=== PATIENT | male | born 1935 | race Caucasian/White ===

== ENCOUNTER 2016-11-27 07:02 | Observation (INO) | payer MEDICARE ==
[~2016-11-27] VITALS: Ht 185.4 cm; Wt 84.6 kg
[~2016-11-27 07:02] MED LIST: CEPH-376 PO; COLC0.6T37 PO; DIGO250T PO; DILT-4 PO; DILT120T3 PO; DILT240C55 PO; LEVE500T53 PO; LEVO750T26 PO; LISI-167 PO; METO-93 PO; RIVA20TA PO; UNKNOWN BP MED
[2016-11-27] MEDS ORDERED: SODIUM CHLORIDE 0.9% 1,000 ML IV ONE (07:31)
[2016-11-27] MEDS ORDERED: DILTIAZEM 125 MG in DEXTROSE 5% 100 ML IV SCH (07:31)
[2016-11-27 07:53] LABS: HEMOGLOBIN 16.7 g/dL (13.7-18.0)
[2016-11-27] MEDS ORDERED: DILTIAZEM 5 MG/ML, 5ML ONE (07:58)
[2016-11-27] MEDS ORDERED: ASPIRIN 81 MG TABLET CHEW ONE (07:58)
[2016-11-27] MEDS ORDERED: SODIUM CHLORIDE FLUSH 10ML SYR IVF ONE (08:00)
[2016-11-27] MEDS ORDERED: DILTIAZEM 5 MG/ML, 5ML IV ONE (08:00)
[2016-11-27] MEDS ORDERED: ASPIRIN 81 MG TABLET CHEW PO ONE (08:00)
[2016-11-27 08:06] LABS: BLOOD UREA NITROGEN 17 mg/dL (7-18)
[2016-11-27 08:18] LABS: IS PT STATUS REG ER OR PRE ER? YES
[2016-11-27] MEDS ORDERED: SODIUM CHLORIDE FLUSH 10ML SYR IVF PRN (09:30)
[2016-11-27] MEDS: SODIUM CHLORIDE 0.9% 1,000 ML IV SCH (09:35)
[2016-11-27] MEDS ORDERED: ENOXAPARIN 40 MG/0.4 ML SQ SCH (10:00)
[2016-11-27] MEDS ORDERED: DOCUSATE 100 MG CAPSULE PO PRN (10:00)
[2016-11-27] MEDS ORDERED: TRAZODONE 50MG TABLET PO PRN (10:00)
[2016-11-27] MEDS ORDERED: ACETAMINOPHEN 325 MG TABLET PO PRN (10:00)
[2016-11-27] MEDS ORDERED: ENOXAPARIN 40 MG/0.4 ML ONE (10:56)
[2016-11-27 13:00] VITALS: BP 128/86
[2016-11-27 18:33] VITALS: BP 152/82
[2016-11-27] MEDS: DILTIAZEM 90 MG TABLET PO SCH (21:15)
[2016-11-28 02:11] VITALS: BP 125/79
[2016-11-28] MEDS: SODIUM CHLORIDE 0.9% 1,000 ML IV SCH (03:00)
[2016-11-28 04:56] LABS: HEMOGLOBIN 14.3 g/dL (13.7-18.0)
[2016-11-28 05:14] LABS: BLOOD UREA NITROGEN 15 mg/dL (7-18)
[2016-11-28] MEDS ORDERED: ASPIRIN 325 MG TABLET EC PO SCH (06:00)
[2016-11-28 06:45] VITALS: BP 142/96
[2016-11-28] MEDS: DILTIAZEM 90 MG TABLET PO SCH (07:39)
[2016-11-28] MEDS ORDERED: DILT90TA PO (07:45)
[2016-11-28] MEDS ORDERED: APIX2.5T PO (07:45)
[2016-11-28] MEDS ORDERED: DIGOXIN 0.25 MG TABLET PO SCH (09:00)
== END 2016-11-28 10:43 | disposition home or self-care (01) ==
LOC: ED 08:45 → INTOOBSV 09:11 → OBSVTOIN 09:11 → EDIP 09:11 → 5SO 14:04
PROVIDERS: ADMIT Internal Medicine; ATTEND Internal Medicine
DX: I48.91 Unspecified atrial fibrillation (principal); R00.0 Tachycardia, unspecified; R53.1 Weakness; R79.89 Other specified abnormal findings of blood chemistry; F03.90 Unspecified dementia, unspecified severity, without behavioral disturbance, psychotic disturbance, mood disturbance, and anxiety; I10 Essential (primary) hypertension; I50.9 Heart failure, unspecified; Z91.14 Patient's other noncompliance with medication regimen
CPT/HCPCS: 36415; 70450; 71010; 80048; 80162; 82040; 83735; 83880; 84484; 85025; 85610; 85730; 93005; 96365; 96366; 96372; 96375; 99285; G0378; J1650; J7030

== ENCOUNTER → 2017-02-01 | Outpatient (CLI) | payer MEDICARE ==
[~2017-02-01] MED LIST changes: +APIX2.5T PO; +DILT90TA PO
[2017-02-01 13:08] LABS: BLOOD UREA NITROGEN 22 mg/dL (7-18)
== END | disposition home or self-care (01) ==
LOC: CFH 09:05
PROVIDERS: ATTEND Internal Medicine Cardiovascular Disease
DX: I10 Essential (primary) hypertension (principal)
CPT/HCPCS: 36415; 80048

== ENCOUNTER → 2017-03-21 | Outpatient (CLI) | payer MEDICARE ==
[2017-03-22 13:14] LABS: RHEUMATOID FACTOR SCREEN NEGATIVE (NEGATIVE)
[2017-03-22 15:25] LABS: ANA SCREEN POSITIVE (Negative)
== END | disposition home or self-care (01) ==
LOC: CFH 12:45
PROVIDERS: ATTEND Family Medicine
DX: R22.32 Localized swelling, mass and lump, left upper limb (principal); M19.012 Primary osteoarthritis, left shoulder
CPT/HCPCS: 36415; 84550; 86038; 86039; 86140; 86200; 86430

== ENCOUNTER 2019-04-19 14:53 | Inpatient (IN) | payer MEDICARE ==
[~2019-04-19] VITALS: Ht 185.4 cm; Wt 85.0 kg
[2019-04-21 07:54] VITALS: BP 139/98
== END 2019-04-21 10:20 | disposition home or self-care (01) | DRG 682 ==
LOC: ED 18:54 → EDIP 18:57 → 4WST 20:00 → DCLOUNGE 04-21 10:00
PROVIDERS: ADMIT Internal Medicine; ATTEND Internal Medicine
DX: N17.0 Acute kidney failure with tubular necrosis (principal); R53.2 Functional quadriplegia; I50.42 Chronic combined systolic (congestive) and diastolic (congestive) heart failure; J98.11 Atelectasis; I48.2 Chronic atrial fibrillation; E86.0 Dehydration; I11.0 Hypertensive heart disease with heart failure; I34.0 Nonrheumatic mitral (valve) insufficiency; R56.9 Unspecified convulsions; Z91.14 Patient's other noncompliance with medication regimen
CPT/HCPCS: 36415; 70553; 71045; 71260; 80053; 80061; 81001; 82378; 83036; 83690; 83735; 84100; 84439; 84443; 84484; 85025; 87086; 93005; 96360; 99285; G0378; Q9967; J7040

== ENCOUNTER 2019-10-05 08:39 | Inpatient (IN) | payer MEDICARE ==
[~2019-10-05] VITALS: Ht 185.4 cm; Wt 87.6 kg
[~2019-10-05 08:39] MED LIST changes: -DILT-4 PO; +DILT120C83 PO; +DILT180C72 PO; +LAMO25TA9 PO; +LAMO25TB7 PO; +METO25TA35 PO
[2019-10-05] MEDS ORDERED: SODIUM CHLORIDE FLUSH 10ML SYR IVF ONE (09:00)
[2019-10-05] MEDS ORDERED: DILTIAZEM 5 MG/ML, 5ML IV ONE (09:00)
[2019-10-05] MEDS: DILTIAZEM 125 MG in SODIUM CHLORIDE 0.9% 100 ML IV SCH ×2 (09:15→14:13)
[2019-10-05] MEDS ORDERED: DILTIAZEM 5 MG/ML, 5ML ONE (09:18)
[2019-10-05] MEDS ORDERED: DILT180C53 PO (09:25)
[2019-10-05] MEDS ORDERED: ASPI-650 PO (09:25)
--- NOTE | 2019-10-05 09:32 | NUR ---
PT SEND FROM DR JIMENEZ. PT HAS CO OF SOB FOR FEW DAYS. NO CP. NO N/V. PT ON CARDIAC MONIOTR, FOUND TO BE IN AFIB RATE RANGING 100-120. PT IS NOT IN RESP DISTRESS. RA STABLE. BP STABLE. PT ON ELECTRIC METER INSPECTOR, IV ESTABLISHED. MEDICATED PER ORDERS 10 MG DILT IVP AND DILT GTT STARTED AT 10 ML/HR
[2019-10-05 09:40] LABS: BASOPHILS # (AUTO) 0.02 x10^3/uL (0-0.1); BASOPHILS % (AUTO) 0 % (0-1); EOSINOPHILS # (AUTO) 0.12 x10^3/uL (0-0.4); EOSINOPHILS % (AUTO) 1 % (1-7); LYMPHOCYTES # (AUTO) 1.03 x10^3/uL (1-3.4); LYMPHOCYTES % (AUTO) 10 % (22-44); MD NO; MEAN CORPUSCULAR HEMOGLOBIN 31.4 pg (27.5-34.5); MEAN CORPUSCULAR HGB CONC 33.2 g/dL (33.2-36.2); MEAN CORPUSCULAR VOLUME 94.5 fL (81-97); MEAN PLATELET VOLUME 9.6 fL (7.4-10.4); MONOCYTES # (AUTO) 0.65 x10^3/uL (0.2-0.8); MONOCYTES % (AUTO) 6 % (2-9); NEUTROPHILS # (AUTO) 8.39 x10^3/uL (1.8-6.8); NEUTROPHILS % (AUTO) 82 % (42-75); PLATELET COUNT 184 x10^3/uL (130-400); RED BLOOD COUNT 4.68 x10^6/uL (4.38-5.82)
[2019-10-05 09:48] LABS: INTERNATIONAL NORMALIZED RATIO 1.07 (0.93-1.1); PROTHROMBIN TIME 11.3 Seconds (9.6-11.5)
[2019-10-05 10:14] LABS: CHLORIDE 111 mmol/L (98-107)
--- NOTE | 2019-10-05 10:21 | NUR ---
PT WATCHING TV, CALL LIGHT IN REACH. DISCUSSED POC FOR POSSIBLE ADMIT. VS STABLE.
[2019-10-05 10:22] LABS: ALANINE AMINOTRANSFERASE 31 U/L (12-78); ALBUMIN 3.1 g/dL (3.4-5.0); ALKALINE PHOSPHATASE 67 U/L (45-117); ANION GAP 8 mmol/L (5-15); CALCIUM 8.5 mg/dL (8.5-10.1); CREATININE 1.42 mg/dL (0.7-1.3); T4 (THYROXINE) 6.8 mcg/dL (4.5-12.1); TOTAL PROTEIN 6.9 g/dL (6.4-8.2); TROPONIN I < 0.015 ng/mL (0.000-0.045)
[2019-10-05] MEDS ORDERED: NEOSPORIN OINT. PKT 1 PACKET ONE (10:43)
[2019-10-05] MEDS ORDERED: ONDANSETRON ODT 4 MG PO PRN (11:00)
[2019-10-05] MEDS ORDERED: SODIUM CHLORIDE FLUSH 10ML SYR IVF PRN (11:00)
[2019-10-05] MEDS ORDERED: ACETAMINOPHEN 325 MG TABLET PO PRN (11:00)
--- NOTE | 2019-10-05 11:49 | NUR ---
REPORT TO [facility]. ROOM DIRTY
[2019-10-05 12:28] VITALS: BP 142/91
[2019-10-05] MEDS: SODIUM CHLORIDE 0.9% 1,000 ML IV SCH (14:13)
[2019-10-05 15:17] LABS: CULTURE INDICATED? YES; MICROSCOPIC INDICATED
[2019-10-05] MEDS: CEFTRIAXONE PMX 2GM/50ML 50 ML IV SCH (17:29)
[2019-10-05] MEDS: ENOXAPARIN 40 MG/0.4 ML SQ SCH (18:30)
[2019-10-05 18:55] VITALS: BP 145/87
[2019-10-05] MEDS: METOPROLOL TARTRATE 25 MG TABLET PO SCH (20:20)
[2019-10-05] MEDS ORDERED: DILTIAZEM CD 180 MG CAP.ER.24H PO SCH (21:00)
[2019-10-06 01:04] VITALS: BP 144/84
[2019-10-06] MEDS: SODIUM CHLORIDE 0.9% 1,000 ML IV SCH ×2 (05:09→21:21)
[2019-10-06 05:33] LABS: BASOPHILS # (AUTO) 0.03 x10^3/uL (0-0.1); BASOPHILS % (AUTO) 0 % (0-1); EOSINOPHILS # (AUTO) 0.21 x10^3/uL (0-0.4); EOSINOPHILS % (AUTO) 2 % (1-7); LYMPHOCYTES # (AUTO) 0.85 x10^3/uL (1-3.4); LYMPHOCYTES % (AUTO) 9 % (22-44); MD NO; MEAN CORPUSCULAR HEMOGLOBIN 31.4 pg (27.5-34.5); MEAN CORPUSCULAR HGB CONC 33.1 g/dL (33.2-36.2); MEAN CORPUSCULAR VOLUME 94.7 fL (81-97); MEAN PLATELET VOLUME 10.1 fL (7.4-10.4); MONOCYTES # (AUTO) 0.74 x10^3/uL (0.2-0.8); MONOCYTES % (AUTO) 8 % (2-9); NEUTROPHILS # (AUTO) 7.45 x10^3/uL (1.8-6.8); NEUTROPHILS % (AUTO) 80 % (42-75); PLATELET COUNT 180 x10^3/uL (130-400); RED BLOOD COUNT 4.37 x10^6/uL (4.38-5.82); RED CELL DISTRIBUTION WIDTH 15.1 % (9.4-14.8)
[2019-10-06 05:36] LABS: ANION GAP 7 mmol/L (5-15); CALCIUM 7.9 mg/dL (8.5-10.1); CHLORIDE 110 mmol/L (98-107)
[2019-10-06] MEDS ORDERED: DILTIAZEM 125 MG in SODIUM CHLORIDE 0.9% 100 ML IV PRN (09:00)
[2019-10-06] MEDS ORDERED: DILTIAZEM 5 MG/ML, 5ML IVPush ONE (09:00)
[2019-10-06 10:00] VITALS: BP 134/84
[2019-10-06] MEDS: METOPROLOL TARTRATE 25 MG TABLET PO SCH ×2 (10:09→20:02)
[2019-10-06] MEDS: ASPIRIN 325 MG TABLET EC PO SCH (10:09)
[2019-10-06 13:00] VITALS: BP 144/103
[2019-10-06] MEDS: CEFTRIAXONE PMX 2GM/50ML 50 ML IV SCH (16:59)
[2019-10-06] MEDS: ENOXAPARIN 40 MG/0.4 ML SQ SCH (17:47)
[2019-10-06 19:56] VITALS: BP 144/100
[2019-10-07 02:18] VITALS: BP 158/119
[2019-10-07] MEDS: DILTIAZEM 125 MG in SODIUM CHLORIDE 0.9% 100 ML IV SCH ×3 (02:44→20:16)
[2019-10-07 05:35] LABS: ALANINE AMINOTRANSFERASE 18 U/L (12-78); ALBUMIN 2.8 g/dL (3.4-5.0); ANION GAP 9 mmol/L (5-15); CHLORIDE 111 mmol/L (98-107); CREATININE 1.01 mg/dL (0.7-1.3)
[2019-10-07 05:36] LABS: BASOPHILS # (AUTO) 0.05 x10^3/uL (0-0.1); BASOPHILS % (AUTO) 1 % (0-1); EOSINOPHILS # (AUTO) 0.32 x10^3/uL (0-0.4); EOSINOPHILS % (AUTO) 4 % (1-7); LYMPHOCYTES # (AUTO) 1.04 x10^3/uL (1-3.4); LYMPHOCYTES % (AUTO) 13 % (22-44); MD NO; MEAN CORPUSCULAR HEMOGLOBIN 31.6 pg (27.5-34.5); MEAN CORPUSCULAR HGB CONC 33.2 g/dL (33.2-36.2); MEAN PLATELET VOLUME 9.9 fL (7.4-10.4); MONOCYTES # (AUTO) 0.69 x10^3/uL (0.2-0.8); MONOCYTES % (AUTO) 9 % (2-9); NEUTROPHILS # (AUTO) 6.01 x10^3/uL (1.8-6.8); NEUTROPHILS % (AUTO) 74 % (42-75); PLATELET COUNT 190 x10^3/uL (130-400); RED BLOOD COUNT 4.41 x10^6/uL (4.38-5.82); RED CELL DISTRIBUTION WIDTH 14.8 % (9.4-14.8)
[2019-10-07 05:37] LABS: ALKALINE PHOSPHATASE 66 U/L (45-117); BILIRUBIN,TOTAL 0.8 mg/dL (0.2-1.0); TOTAL PROTEIN 6.4 g/dL (6.4-8.2)
[2019-10-07 06:52] VITALS: BP 153/80
[2019-10-07] MEDS: ASPIRIN 325 MG TABLET EC PO SCH (08:54)
[2019-10-07] MEDS: METOPROLOL TARTRATE 25 MG TABLET PO SCH ×4 (08:54→20:14)
[2019-10-07] MEDS ORDERED: DILTIAZEM 125 MG in SODIUM CHLORIDE 0.9% 100 ML IV SCH (09:00)
[2019-10-07] MEDS ORDERED: POTASSIUM CHLORIDE 20 MEQ TAB.ER.PRT PO ONE (09:30)
[2019-10-07] MEDS: SODIUM CHLORIDE 0.9% 1,000 ML IV SCH (11:01)
[2019-10-07 12:51] VITALS: BP 143/73
[2019-10-07 15:21] LABS: OCCULT BLOOD NEGATIVE (NEGATIVE)
[2019-10-07] MEDS: ENOXAPARIN 40 MG/0.4 ML SQ SCH (16:57)
[2019-10-07] MEDS ORDERED: HALOPERIDOL 5 MG TABLET PO PRN (19:30)
[2019-10-07 19:47] VITALS: BP 138/87
[2019-10-07] MEDS: SULFAMETH./TRIMETHOPRIM DS 800MG/160MG TABLET PO SCH (20:14)
[2019-10-07] MEDS ORDERED: QUETIAPINE 25MG TABLET PO PRN (22:30)
[2019-10-07] MEDS ORDERED: PHARMACY INSTRUCTION MC PRN (22:30)
[2019-10-07] MEDS ORDERED: INSTRUCTION SEE COMMENTS XX PRN (22:30)
[2019-10-07] MEDS: MELATONIN 3 MG TABLET PO SCH (22:50)
[2019-10-08 06:48] VITALS: BP 147/90
[2019-10-08] MEDS: SULFAMETH./TRIMETHOPRIM DS 800MG/160MG TABLET PO SCH ×2 (08:19→20:13)
[2019-10-08] MEDS: METOPROLOL TARTRATE 25 MG TABLET PO SCH ×4 (08:19→20:13)
[2019-10-08] MEDS: ASPIRIN 325 MG TABLET EC PO SCH (08:19)
[2019-10-08 08:51] LABS: ANION GAP 8 mmol/L (5-15); CALCIUM 8.3 mg/dL (8.5-10.1); CHLORIDE 111 mmol/L (98-107)
[2019-10-08 08:52] LABS: CREATININE 0.97 mg/dL (0.7-1.3)
[2019-10-08 12:16] VITALS: BP 129/89
[2019-10-08] MEDS: DILTIAZEM 90 MG TABLET PO SCH ×3 (15:44→20:32)
[2019-10-08 20:01] VITALS: BP 134/76
[2019-10-08 20:09] VITALS: BP 144/81
[2019-10-08] MEDS: MELATONIN 3 MG TABLET PO SCH (20:14)
[2019-10-08] MEDS ORDERED: ENOXAPARIN 40 MG/0.4 ML SQ SCH (21:00)
[2019-10-09] MEDS ORDERED: DILTIAZEM 125 MG in SODIUM CHLORIDE 0.9% 100 ML IV SCH (02:44)
[2019-10-09 05:14] VITALS: BP 119/54
[2019-10-09] MEDS: DILTIAZEM 90 MG TABLET PO SCH ×4 (05:17→21:09)
[2019-10-09] MEDS: METOPROLOL TARTRATE 25 MG TABLET PO SCH ×4 (05:17→21:08)
[2019-10-09 07:03] VITALS: BP 125/83
[2019-10-09] MEDS: SULFAMETH./TRIMETHOPRIM DS 800MG/160MG TABLET PO SCH ×2 (07:46→21:08)
[2019-10-09] MEDS ORDERED: ENOXAPARIN 80 MG/0.8 ML SQ SCH (08:00)
[2019-10-09 09:20] LABS: BASOPHILS # (AUTO) 0.02 x10^3/uL (0-0.1); BASOPHILS % (AUTO) 0 % (0-1); EOSINOPHILS # (AUTO) 0.42 x10^3/uL (0-0.4); EOSINOPHILS % (AUTO) 6 % (1-7); LYMPHOCYTES # (AUTO) 0.88 x10^3/uL (1-3.4); LYMPHOCYTES % (AUTO) 12 % (22-44); MD NO; MEAN CORPUSCULAR HEMOGLOBIN 31.3 pg (27.5-34.5); MEAN CORPUSCULAR HGB CONC 33.1 g/dL (33.2-36.2); MEAN CORPUSCULAR VOLUME 94.6 fL (81-97); MEAN PLATELET VOLUME 9.4 fL (7.4-10.4); MONOCYTES # (AUTO) 0.39 x10^3/uL (0.2-0.8); MONOCYTES % (AUTO) 5 % (2-9); NEUTROPHILS # (AUTO) 5.56 x10^3/uL (1.8-6.8); NEUTROPHILS % (AUTO) 76 % (42-75); PLATELET COUNT 231 x10^3/uL (130-400); RED CELL DISTRIBUTION WIDTH 14.6 % (9.4-14.8)
[2019-10-09 09:33] LABS: CALCIUM 8.3 mg/dL (8.5-10.1); CHLORIDE 109 mmol/L (98-107)
[2019-10-09 09:37] LABS: ANION GAP 8 mmol/L (5-15); CREATININE 1.42 mg/dL (0.7-1.3)
[2019-10-09] MEDS: ASPIRIN 81 MG TABLET EC PO SCH (10:56)
[2019-10-09 12:56] VITALS: BP 129/91
[2019-10-09] MEDS ORDERED: LAMO25TB7 PO (17:06)
[2019-10-09 17:31] LABS: ANION GAP 5 mmol/L (5-15); CALCIUM 8.8 mg/dL (8.5-10.1); CHLORIDE 108 mmol/L (98-107); CREATININE 1.43 mg/dL (0.7-1.3)
[2019-10-09 17:41] LABS: BASOPHILS # (AUTO) 0.04 x10^3/uL (0-0.1); BASOPHILS % (AUTO) 1 % (0-1); EOSINOPHILS # (AUTO) 0.33 x10^3/uL (0-0.4); EOSINOPHILS % (AUTO) 5 % (1-7); LYMPHOCYTES % (AUTO) 17 % (22-44); MD NO; MEAN CORPUSCULAR HEMOGLOBIN 31.3 pg (27.5-34.5); MEAN CORPUSCULAR HGB CONC 33.1 g/dL (33.2-36.2); MEAN CORPUSCULAR VOLUME 94.3 fL (81-97); MEAN PLATELET VOLUME 9.7 fL (7.4-10.4); MONOCYTES # (AUTO) 0.65 x10^3/uL (0.2-0.8); MONOCYTES % (AUTO) 10 % (2-9); NEUTROPHILS # (AUTO) 4.49 x10^3/uL (1.8-6.8); NEUTROPHILS % (AUTO) 68 % (42-75); PLATELET COUNT 231 x10^3/uL (130-400); RED BLOOD COUNT 4.69 x10^6/uL (4.38-5.82); RED CELL DISTRIBUTION WIDTH 15.2 % (9.4-14.8)
[2019-10-09 18:47] VITALS: BP 109/76
[2019-10-09 21:07] VITALS: BP 138/85
[2019-10-09] MEDS: APIXABAN 5 MG TABLET PO SCH (21:08)
[2019-10-09] MEDS: MELATONIN 3 MG TABLET PO SCH (21:09)
[2019-10-10 00:46] VITALS: BP 143/88
[2019-10-10 05:16] VITALS: BP 129/86
[2019-10-10] MEDS: ASPIRIN 81 MG TABLET EC PO SCH (05:17)
[2019-10-10] MEDS: METOPROLOL TARTRATE 25 MG TABLET PO SCH (05:17)
[2019-10-10] MEDS: DILTIAZEM 90 MG TABLET PO SCH (05:17)
[2019-10-10 07:48] VITALS: BP 120/80
[2019-10-10] MEDS: APIXABAN 5 MG TABLET PO SCH ×2 (08:34→08:35)
[2019-10-10] MEDS: SULFAMETH./TRIMETHOPRIM DS 800MG/160MG TABLET PO SCH (08:34)
[2019-10-10] MEDS ORDERED: DILT180C72 PO (09:39)
[2019-10-10] MEDS ORDERED: APIX5TAB PO (09:39)
[2019-10-10] MEDS ORDERED: METO-290 PO (09:39)
[2019-10-10] MEDS ORDERED: ASPI81TA45 PO (09:39)
[2019-10-10] MEDS ORDERED: Sulfameth./Trimethoprim Ds PO (09:39)
== END 2019-10-10 10:40 | disposition home or self-care (01) | DRG 682 ==
LOC: ED 10:52 → EDIP 10:56 → 5SO 12:22 → DCLOUNGE 10-10 10:21
PROVIDERS: ADMIT Emergency Medicine; ATTEND Hospitalist
DX: N17.9 Acute kidney failure, unspecified (principal); G93.41 Metabolic encephalopathy; N39.0 Urinary tract infection, site not specified; I48.20 Chronic atrial fibrillation, unspecified; I50.40 Unspecified combined systolic (congestive) and diastolic (congestive) heart failure; B95.8 Unspecified staphylococcus as the cause of diseases classified elsewhere; Z88.8 Allergy status to other drugs, medicaments and biological substances; E86.0 Dehydration; I11.0 Hypertensive heart disease with heart failure; Z79.82 Long term (current) use of aspirin; Z91.14 Patient's other noncompliance with medication regimen
CPT/HCPCS: 36415; 71045; 80048; 80053; 81001; 82272; 83735; 83880; 84100; 84436; 84443; 84484; 85025; 85610; 85730; 87077; 87086; 87186; 93005; 93306; 96374; G0378; J0696; J1650; J7030

== ENCOUNTER 2019-12-09 11:39 | Observation (INO) | payer MEDICARE ==
[~2019-12-09] VITALS: Ht 185.4 cm; Wt 83.8 kg
[~2019-12-09 11:39] MED LIST changes: +APIX5TAB PO; +ASPI-650 PO; +ASPI81TA45 PO; -DIGO250T PO; +DIGO250T3 PO; +DILT180C53 PO; +METO-290 PO; +Sulfameth./Trimethoprim Ds PO
[2019-12-09] MEDS ORDERED: MORPHINE SULFATE 4 MG/ML, 1ML ONE ×2 (12:11→13:24)
--- NOTE | 2019-12-09 12:11 | NUR ---
THIS IS A 84 YEAR OLD MALE WHO C/O MID ABD TOWARD BACK PAIN. 06/21. DAUGHTER AT BS. PT HAS A HX OF AFIB AND STOP TAKING XERALTO DUE TO MCCALL. PT PLACED ON HAM BONER, SINUS, CONTINOUS SP02 AT 98%, CYCLE VS. REPORT TO ONEIL ACOSTA, PLAN OF CARE DISCUSSED
[2019-12-09] MEDS: MORPHINE SULFATE 4 MG/ML, 1ML IVPush PRN ×2 (12:15→13:28)
[2019-12-09] MEDS ORDERED: ONDANSETRON 2MG/ML, 2ML ONE (12:16)
[2019-12-09 12:18] LABS: BASOPHILS # (AUTO) 0.01 x10^3/uL (0-0.1); BASOPHILS % (AUTO) 0 % (0-1); EOSINOPHILS % (AUTO) 2 % (1-7); LYMPHOCYTES # (AUTO) 1.19 x10^3/uL (1-3.4); LYMPHOCYTES % (AUTO) 11 % (22-44); MD NO; MEAN CORPUSCULAR HGB CONC 33.1 g/dL (33.2-36.2); MEAN CORPUSCULAR VOLUME 93.9 fL (81-97); MEAN PLATELET VOLUME 8.9 fL (7.4-10.4); MONOCYTES # (AUTO) 0.42 x10^3/uL (0.2-0.8); MONOCYTES % (AUTO) 4 % (2-9); NEUTROPHILS % (AUTO) 84 % (42-75); PLATELET COUNT 208 x10^3/uL (130-400); RED BLOOD COUNT 5.34 x10^6/uL (4.38-5.82); RED CELL DISTRIBUTION WIDTH 14.1 % (9.4-14.8)
[2019-12-09] MEDS ORDERED: ONDANSETRON 2MG/ML, 2ML IVPush ONE (12:30)
[2019-12-09] MEDS ORDERED: SODIUM CHLORIDE FLUSH 10ML SYR IVF ONE (12:30)
[2019-12-09 12:31] LABS: ALANINE AMINOTRANSFERASE 55 U/L (12-78); ALBUMIN 3.7 g/dL (3.4-5.0); ANION GAP 4 mmol/L (5-15); CALCIUM 8.7 mg/dL (8.5-10.1); CHLORIDE 106 mmol/L (98-107)
[2019-12-09 12:36] LABS: ALKALINE PHOSPHATASE 112 U/L (45-117); BILIRUBIN,TOTAL 0.9 mg/dL (0.2-1.0); TOTAL PROTEIN 7.5 g/dL (6.4-8.2); TROPONIN I < 0.015 ng/mL (0.000-0.045)
[2019-12-09 12:53] LABS: MICROSCOPIC AUTO
[2019-12-09 13:04] LABS: CULTURE INDICATED? YES
[2019-12-09] MEDS ORDERED: OMNIPAQUE 350 MG/ML, 100ML BOTTLE ONE (13:09)
--- NOTE | 2019-12-09 14:47 | NUR ---
PT CONTINUES TO REST IN BED, DAUGHTER AT BEDSIDE. PT DENIES ANY NEEDS OR CONCERNS AT THIS TIME, CALL LIGHT IN REACH.
--- NOTE | 2019-12-09 16:00 | NUR ---
PT REPORTS COMFORTABLE AT THIS TIME, DECLINES MORE PAIN MEDICATION, DECLINES FOOD OR FLUIDS
[2019-12-09] MEDS ORDERED: LACTATED RINGERS 1,000 ML IV ONE (17:00)
[2019-12-09] MEDS ORDERED: ONDANSETRON 2MG/ML, 2ML IVPush PRN (17:00)
[2019-12-09] MEDS ORDERED: GUAIFENESIN/DM 200-20MG, 10ML UDC PO PRN (17:00)
[2019-12-09] MEDS ORDERED: METHOCARBAMOL 500 MG TABLET PO PRN (17:00)
[2019-12-09] MEDS ORDERED: ONDANSETRON ODT 4 MG PO PRN (17:00)
[2019-12-09] MEDS ORDERED: ACETAMINOPHEN 325 MG TABLET PO PRN (17:00)
[2019-12-09] MEDS ORDERED: LABETALOL 5MG/ML, 20ML IVPush PRN (17:00)
[2019-12-09] MEDS ORDERED: TRAZODONE 50MG TABLET PO PRN (17:00)
[2019-12-09] MEDS ORDERED: BUTALB/APAP/CAFFEINE 50MG/325MG/40MG PO PRN ×2 (17:00)
[2019-12-09] MEDS ORDERED: hydrALAzine 20 MG/ML, 1ML IVPush PRN (17:00)
--- NOTE | 2019-12-09 17:44 | NUR ---
pt refused iv, removed per request
[2019-12-09 18:13] VITALS: BP 142/93
[2019-12-09 18:22] VITALS: BP 141/90
[2019-12-09 18:48] LABS: TROPONIN I < 0.015 ng/mL (0.000-0.045)
[2019-12-09] MEDS: LACTULOSE 10 GM/15 ML UDC PO SCH (21:56)
[2019-12-09 23:00] LABS: TROPONIN I < 0.015 ng/mL (0.000-0.045)
[2019-12-10 00:46] VITALS: BP 129/89
[2019-12-10 05:34] LABS: BASOPHILS # (AUTO) 0.03 x10^3/uL (0-0.1); BASOPHILS % (AUTO) 0 % (0-1); EOSINOPHILS # (AUTO) 0.14 x10^3/uL (0-0.4); EOSINOPHILS % (AUTO) 2 % (1-7); LYMPHOCYTES # (AUTO) 1.16 x10^3/uL (1-3.4); LYMPHOCYTES % (AUTO) 19 % (22-44); MD NO; MEAN CORPUSCULAR HEMOGLOBIN 31.4 pg (27.5-34.5); MEAN CORPUSCULAR HGB CONC 33.3 g/dL (33.2-36.2); MEAN CORPUSCULAR VOLUME 94.3 fL (81-97); MEAN PLATELET VOLUME 8.9 fL (7.4-10.4); MONOCYTES % (AUTO) 8 % (2-9); NEUTROPHILS # (AUTO) 4.42 x10^3/uL (1.8-6.8); NEUTROPHILS % (AUTO) 71 % (42-75); PLATELET COUNT 180 x10^3/uL (130-400); RED BLOOD COUNT 4.94 x10^6/uL (4.38-5.82); RED CELL DISTRIBUTION WIDTH 14.7 % (9.4-14.8)
[2019-12-10 05:43] LABS: ANION GAP 4 mmol/L (5-15); CALCIUM 8.5 mg/dL (8.5-10.1); CHLORIDE 107 mmol/L (98-107)
[2019-12-10 05:44] LABS: CREATININE 1.27 mg/dL (0.7-1.3)
[2019-12-10 07:21] VITALS: BP 142/86
[2019-12-10] MEDS ORDERED: DOCUSATE 100 MG CAPSULE PO SCH (09:00)
[2019-12-10] MEDS: LACTULOSE 10 GM/15 ML UDC PO SCH (09:15)
[2019-12-10] MEDS ORDERED: DOCU100C33 PO (10:53)
[2019-12-10 14:04] VITALS: BP 133/89
== END 2019-12-10 15:00 | disposition home or self-care (01) ==
LOC: ED 12:26 → SUATTDRO 15:39 → EDIP 15:47 → INTOOBSV 15:47 → 3N 18:03
PROVIDERS: ADMIT Family Medicine; ATTEND Family Medicine
DX: R10.9 Unspecified abdominal pain (principal); I48.20 Chronic atrial fibrillation, unspecified; I13.0 Hypertensive heart and chronic kidney disease with heart failure and stage 1 through stage 4 chronic kidney disease, or unspecified chronic kidney disease; I50.9 Heart failure, unspecified; R73.9 Hyperglycemia, unspecified; D68.69 Other thrombophilia; N18.9 Chronic kidney disease, unspecified; Z79.82 Long term (current) use of aspirin; Z79.899 Other long term (current) drug therapy
CPT/HCPCS: 36415; 71045; 74175; 80048; 80053; 81001; 83605; 83690; 83735; 84100; 84484; 85025; 87086; 93005; 96374; 96375; 96376; 99285; G0378; J2270; J2405; Q9967

== ENCOUNTER 2020-09-28 05:06 | Emergency (ER) | payer MEDICARE ==
[~2020-09-28] VITALS: Ht 185.4 cm; Wt 89.2 kg
[~2020-09-28 05:06] MED LIST changes: +DOCU100C33 PO
[2020-09-28 05:29] VITALS: BP 166/114
[2020-09-28] MEDS ORDERED: OXYcodone/APAP 5/325MG TABLET PO ONE ×2 (05:30→07:30)
[2020-09-28] MEDS ORDERED: OXYcodone/APAP 5/325MG TABLET ONE (05:39)
--- NOTE | 2020-09-28 06:07 | NUR ---
patient resting in bed. L wrist elevated and ice pack applied per order. percocet administered per order. daughter at bedside. in NAD. bed in lowest position. call hughes in reach. patient has PMH of afib and daughter states patient should be taking blood thinners but patient refuses to take them. he also is prescribed diltiazem and also refuses to take that as well. patient's HR controlled at this time. no cardiac complaints. only complaint is L wrist pain. will continue to monitor.
--- NOTE | 2020-09-28 06:59 | NUR ---
report given to shankar ACOSTA
--- NOTE | 2020-09-28 07:28 | NUR ---
AFTER SPLINT PLACED WITH SLING PT GIVEN DISCHARGE AND AMBULATED TO DISCHARGE WINDOW. GOOD DISTAL CMS NOTED
== END 2020-09-28 07:31 | disposition home or self-care (01) ==
LOC: ED 07:25
DX: S62.035A Nondisplaced fracture of proximal third of navicular [scaphoid] bone of left wrist, initial encounter for closed fracture (principal); S63.522A Sprain of radiocarpal joint of left wrist, initial encounter; W01.0XXA Fall on same level from slipping, tripping and stumbling without subsequent striking against object, initial encounter; I48.91 Unspecified atrial fibrillation; I48.92 Unspecified atrial flutter; I11.0 Hypertensive heart disease with heart failure; I50.9 Heart failure, unspecified; Y93.89 Activity, other specified; Y92.009 Unspecified place in unspecified non-institutional (private) residence as the place of occurrence of the external cause; Y99.8 Other external cause status
CPT/HCPCS: 29125; 99284